=== PATIENT | female | born 1975 | race African-American/Black ===

== ENCOUNTER 2016-08-19 11:20 | Emergency (ER) | payer MEDICAID, OTHER ==
[~2016-08-19] VITALS: Ht 162.6 cm; Wt 63.0 kg
[2016-08-19 12:18] LABS: BASOPHILS % 0.8 % (0.0-2.0); EOSINOPHILS % 0.3 % (0.0-5.0); HEMOGLOBIN. 12.7 g/dL (12.0-16.0); LYMPHOCYTES % 26.1 % (20.0-50.0); MEAN CORPUSCULAR HEMOGLOBIN 28.7 pg (28.0-32.0); MEAN CORPUSCULAR HGB CONC 33.4 g/dL (31.0-37.0); MEAN CORPUSCULAR VOLUME 86.1 fL (81.0-99.0); MEAN PLATELET VOLUME 6.6 fl (7.4-10.4); MONOCYTES % 7.7 % (2.0-8.0); NEUTROPHILS % 65.1 % (40.0-76.0); PLATELET 199 x1000/uL (130-400); RED BLOOD CELL COUNT 4.41 mill/uL (4.2-5.4); RED CELL DISTRIBUTION WIDTH 20.4 % (11.6-14.6); WHITE BLOOD COUNT 5.6 x1000/uL (4.5-11.0)
[2016-08-19 12:26] LABS: INR 0.9; PROTHROMBIN TIME 9.8 sec
[2016-08-19 12:30] LABS: AMMONIA 14 uMol/L (<32); INDEX HEMOLYSI 1 (1-3)
[2016-08-19 12:36] LABS: ALANINE AMINOTRANSFERASE 104 IU/L (13-61); ALBUMIN 4.1 g/dL (3.4-5.0); ANION GAP 17; CALCIUM 8.5 mg/dL (8.5-10.1); CARBON DIOXIDE 25 mEq/L (21-32); CHLORIDE 108 mEq/L (98-107); INDEX HEMOLYSI 1 (1-3); INDEX ICTERIC 1 (1-4); INDEX LIPEMIC 1 (1-3); UREA NITROGEN BLOOD 7 mg/dL (7-21); eGFR > 60 mL/min (>60)
[2016-08-19 12:38] LABS: CLARITY URINE CLEAR (CLEAR); COLOR URINE YELLOW (YELLOW); GLUCOSE URINE NEGATIVE (NEGATIVE); KETONES URINE NEGATIVE (NEGATIVE); LEUKOCYTE ESTERASE URINE NEGATIVE (NEGATIVE); NITRITE URINE NEGATIVE (NEGATIVE); OCCULT BLOOD URINE NEGATIVE (NEGATIVE); PH URINE 5.5 (4.5-8.0); PROTEIN URINE NEGATIVE (NEGATIVE); SPECIFIC GRAVITY URINE 1.005 (1.005-1.030); UROBILINOGEN URINE 0.2 E.U./dL (0.2-1.0)
[2016-08-19 12:41] LABS: THYROID STIMULATING HORMONE 0.26 uIU/mL (0.36-3.74)
[2016-08-19 12:43] LABS: ETHANOL BLOOD 335 mg/dL
[2016-08-19 12:58] LABS: *AMPHETAMINES SCREEN URINE NEGATIVE (NEGATIVE); *BARBITURATES SCREEN URINE NEGATIVE (NEGATIVE); *COCAINE SCREEN URINE NEGATIVE (NEGATIVE); CANNABINOID URINE SCREEN NEGATIVE (NEGATIVE); ECSTASY MDMA SCREEN URINE NEGATIVE (NEGATIVE); METHADONE URINE SCREEN NEGATIVE (NEGATIVE); OPIATES URINE SCREEN NEGATIVE (NEGATIVE); PHENCYCLIDINE URINE SCREEN NEGATIVE (NEGATIVE)
[2016-08-19 13:00] LABS: *BENZODIAZEPINES SCREEN URINE PRESUMTIVE POSITIVE (NEGATIVE)
[2016-08-19 17:40] VITALS: BP 118/76
== END 2016-08-19 17:43 | disposition home or self-care (01) ==
LOC: ER 11:53
DX: F10.129 Alcohol abuse with intoxication, unspecified (principal); R41.82 Altered mental status, unspecified
CPT/HCPCS: 36415; 70450; 70486; 71010; 80053; 80305; 81003; 81025; 82140; 82962; 84443; 85025; 85610; 93005; 99285; G0482; Z7610

== ENCOUNTER 2016-11-26 18:46 | Emergency (ER) | payer OTHER ==
[~2016-11-26] VITALS: Ht 162.6 cm; Wt 60.0 kg
[2016-11-26] MEDS ORDERED: ONDANSETRON HCL 4MG/2ML VIAL IV STA (18:59)
[2016-11-26] MEDS ORDERED: SODIUM CHLORIDE 0.9% 500 ML IV ONE (18:59)
[2016-11-26] MEDS ORDERED: FOLIC ACID 1 MG, THIAMINE HCL 100 MG, MVI, ADULT NO.1 10 ML in DEXTROSE 5% WATER 1,000 ML IV ONE ×4 (19:00)
[2016-11-26] MEDS ORDERED: LORAZEPAM 2MG/ML CPJ IV ONE (19:00)
[2016-11-26 19:36] LABS: BASOPHILS % 0.4 % (0.0-2.0); EOSINOPHILS % 0.2 % (0.0-5.0); HEMATOCRIT. 36.7 % (36.0-48.0); HEMOGLOBIN. 12.1 g/dL (12.0-16.0); LYMPHOCYTES % 10.2 % (20.0-50.0); MEAN CORPUSCULAR HEMOGLOBIN 28.4 pg (28.0-32.0); MEAN CORPUSCULAR VOLUME 86.2 fL (81.0-99.0); MEAN PLATELET VOLUME 6.8 fl (7.4-10.4); MONOCYTES % 7.2 % (2.0-8.0); PLATELET 159 x1000/uL (130-400); RED BLOOD CELL COUNT 4.25 mill/uL (4.2-5.4); RED CELL DISTRIBUTION WIDTH 16.4 % (11.6-14.6)
[2016-11-26 19:45] LABS: CARBON DIOXIDE 26 mEq/L (21-32); CHLORIDE 100 mEq/L (98-107); PROTHROMBIN TIME 10.4 sec
[2016-11-26 19:47] LABS: ETHANOL BLOOD < 10 mg/dL
[2016-11-26 19:53] LABS: CREATINE KINASE 415 IU/L (26-192); TROPONIN I < 0.02 ng/mL (0.00-0.04)
[2016-11-26 20:08] LABS: *AMPHETAMINES SCREEN URINE NEGATIVE (NEGATIVE); *BARBITURATES SCREEN URINE NEGATIVE (NEGATIVE); *BENZODIAZEPINES SCREEN URINE NEGATIVE (NEGATIVE); *COCAINE SCREEN URINE NEGATIVE (NEGATIVE); CANNABINOID URINE SCREEN NEGATIVE (NEGATIVE); METHADONE URINE SCREEN NEGATIVE (NEGATIVE); OPIATES URINE SCREEN NEGATIVE (NEGATIVE); PHENCYCLIDINE URINE SCREEN NEGATIVE (NEGATIVE)
[2016-11-26] MEDS ORDERED: LORAZEPAM 1MG TABLET PO ONE (22:45)
[2016-11-26 22:47] VITALS: BP 141/92
== END 2016-11-26 22:56 | disposition home or self-care (01) ==
LOC: ER 18:54
DX: F10.239 Alcohol dependence with withdrawal, unspecified (principal); R00.0 Tachycardia, unspecified; R79.1 Abnormal coagulation profile
CPT/HCPCS: 36415; 80053; 80305; 82550; 83690; 84443; 84484; 85025; 85610; 85730; 93005; 96361; 96365; 96366; 96375; 99285; G0482; J2060; J2405; J3411; J3490; J7030; J7040; J7070

== ENCOUNTER 2018-11-30 11:45 | Emergency (ER) | payer OTHER ==
[~2018-11-30] VITALS: Ht 160 cm; Wt 64.0 kg
[2018-11-30] MEDS ORDERED: THIAMINE HCL 100 MG/1 ML 2ML VIAL ONE (12:30)
[2018-11-30 12:44] LABS: BASOPHILS % 0.8 % (0.0-2.0); EOSINOPHILS % 1.5 % (0.0-5.0); HEMOGLOBIN. 12.1 g/dL (12.0-16.0); LYMPHOCYTES % 39.4 % (20.0-50.0); MEAN CORPUSCULAR HEMOGLOBIN 28.9 pg (28.0-32.0); MEAN PLATELET VOLUME 6.9 fl (7.4-10.4); MONOCYTES % 9.9 % (2.0-8.0); NEUTROPHILS % 48.4 % (40.0-76.0); PLATELET 144 x1000/uL (130-400); RED BLOOD CELL COUNT 4.19 mill/uL (4.2-5.4); RED CELL DISTRIBUTION WIDTH 15.4 % (11.6-14.6)
[2018-11-30] MEDS: SODIUM CHLORIDE 0.9% 1,000 ML IV ONE (12:45)
[2018-11-30] MEDS: ONDANSETRON HCL 4MG/2ML INJ IV ONE (12:45)
[2018-11-30 12:54] LABS: CHLORIDE 109 mEq/L (98-107)
[2018-11-30 12:59] LABS: ETHANOL BLOOD 235 mg/dL
[2018-11-30 13:11] LABS: HCG SCREEN NEGATIVE
[2018-11-30] MEDS: FOLIC ACID 1 MG, THIAMINE HCL 100 MG, MVI, ADULT NO.1 10 ML in DEXTROSE 5% WATER 1,000 ML IV ONE ×4 (13:14)
[2018-11-30] MEDS: POTASSIUM CHLORIDE 20MEQ TABLET SR PO ONE (13:30)
[2018-11-30 16:26] VITALS: BP 130/96
== END 2018-11-30 16:45 | disposition home or self-care (01) ==
LOC: ER 11:45
DX: T51.0X1A Toxic effect of ethanol, accidental (unintentional), initial encounter (principal); G92 Toxic encephalopathy; Y92.89 Other specified places as the place of occurrence of the external cause
CPT/HCPCS: 36415; 80048; 80307; 80320; 80329; 82962; 84703; 85025; 96365; 96375; 99283; J2405; J3411; J3490; J7030; J7070; G0480

== ENCOUNTER 2018-12-06 20:32 | Emergency (ER) | payer OTHER ==
[~2018-12-06] VITALS: Ht 167.6 cm; Wt 75.0 kg
[2018-12-07] MEDS ORDERED: FOLIC ACID 1 MG, THIAMINE HCL 100 MG, MVI, ADULT NO.1 10 ML in DEXTROSE 5% WATER 1,000 ML IV ONE ×4 (00:30)
[2018-12-07 02:36] VITALS: BP 109/82
== END 2018-12-07 02:36 | disposition home or self-care (01) ==
LOC: ER 20:32
DX: F10.229 Alcohol dependence with intoxication, unspecified (principal); Y90.6 Blood alcohol level of 120-199 mg/100 ml
CPT/HCPCS: 36415; 80320; 96365; 99283; J3411; J3490; J7070; Z7610; G0480